=== PATIENT | female | born 1950 | race Caucasian/White ===

== ENCOUNTER → 2023-10-06 | Day surgery (SDC) | payer MEDICARE ==
[~2023-10-06] VITALS: Ht 157.4 cm; Wt 90.7 kg
[~2023-10-06] MED LIST: AMLODIPINE BESY10 MG PO; CELEXA40 MG PO; HYDROCODONE-AC1 EAC1 PO; MELOXICAM10 MG PO; SYNTHROID137 MCG PO; TOPROL XL100 MG PO
[2023-10-06 13:40] VITALS: BP 153/71
[2023-10-06 14:21] VITALS: BP 127/54
[2023-10-06 14:36] VITALS: BP 145/43
[2023-10-06 14:51] VITALS: BP 152/50
== END | disposition home or self-care (01) ==
LOC: SDC 10-04 14:00
PROVIDERS: ATTEND Ophthalmology
DX: H25.812 Combined forms of age-related cataract, left eye (principal); I10 Essential (primary) hypertension; Z98.818 Other dental procedure status; Z98.890 Other specified postprocedural states

== ENCOUNTER → 2023-11-03 | Day surgery (SDC) | payer MEDICARE ==
[~2023-11-03] VITALS: Ht 160 cm; Wt 93.0 kg
[2023-11-03 09:00] VITALS: BP 127/62
[2023-11-03 10:54] VITALS: BP 114/47
[2023-11-03 11:09] VITALS: BP 102/65
[2023-11-03 11:24] VITALS: BP 119/26
== END | disposition home or self-care (01) ==
LOC: SDC 10-29 11:45
PROVIDERS: ATTEND Ophthalmology
DX: H25.811 Combined forms of age-related cataract, right eye (principal); I10 Essential (primary) hypertension; F32.A Depression, unspecified; G89.29 Other chronic pain; Z90.49 Acquired absence of other specified parts of digestive tract; Z98.84 Bariatric surgery status; Z98.818 Other dental procedure status; Z98.890 Other specified postprocedural states; Z91.041 Radiographic dye allergy status; Z91.013 Allergy to seafood